=== PATIENT | female | born 1945 | race Caucasian/White ===

== ENCOUNTER 2017-06-03 18:51 | Inpatient (IN) | payer MEDICARE ==
[~2017-06-03] VITALS: Ht 160 cm; Wt 62.8 kg
[2017-06-03 20:07] LABS: RED BLOOD COUNT 3.97 M/UL (4.00-5.10); WHITE BLOOD COUNT 22.4 K/UL (4.5-11.0)
[2017-06-03 20:34] LABS: BUN/CREATININE RATIO 19 (0-10)
[2017-06-04] MEDS ORDERED: SINGULAIR10 MG PO (02:28)
[2017-06-04] MEDS ORDERED: PHENERGAN 12.12.5 M1 PO (02:29)
[2017-06-04] MEDS ORDERED: XANAX0.5 MG PO (02:30)
[2017-06-04] MEDS ORDERED: LASIX20 MG PO (02:30)
[2017-06-04] MEDS ORDERED: ZYRTEC10 MG PO (02:30)
[2017-06-04] MEDS ORDERED: POTASSIUM CHLO10 MEQ PO (02:31)
[2017-06-04] MEDS ORDERED: COREG 12.5MG12.5 MG PO (02:31)
[2017-06-04] MEDS ORDERED: PROZAC20 MG PO (02:32)
[2017-06-04] MEDS ORDERED: ASPIR 8181 MG PO (02:32)
[2017-06-04] MEDS ORDERED: RANEXA500 MG PO (02:32)
[2017-06-04] MEDS ORDERED: BISACODYL5 MG PO (02:33)
[2017-06-04] MEDS ORDERED: AMBIEN5 MG PO (02:34)
[2017-06-04] MEDS ORDERED: PLAVIX75 MG PO (02:34)
[2017-06-04] MEDS ORDERED: LISINOPRIL5 MG PO (02:35)
[2017-06-04] MEDS ORDERED: CRESTOR20 MG PO (02:35)
[2017-06-04] MEDS ORDERED: NORCO 5-325 TA1 EACH PO (02:36)
[2017-06-04] MEDS ORDERED: PROAIR HFA8.5 GM INH (02:37)
[2017-06-04] MEDS ORDERED: BREO ELLIPTA 11 EACH INH (02:38)
[2017-06-04 04:58] LABS: HEMOGLOBIN 11.1 gm/dl (12.3-15.3); RED BLOOD COUNT 3.74 M/UL (4.00-5.10)
[2017-06-04 05:06] LABS: WHITE BLOOD COUNT 13.8 K/UL (4.5-11.0)
[2017-06-05 05:14] LABS: HEMOGLOBIN 11.4 gm/dl (12.3-15.3); RED BLOOD COUNT 3.83 M/UL (4.00-5.10)
[2017-06-05 05:19] LABS: WHITE BLOOD COUNT 19.4 K/UL (4.5-11.0)
[2017-06-05] MEDS ORDERED: MEDROL DOSEPAK 24 MG PO (15:07)
[2017-06-05] MEDS ORDERED: LEVAQUIN500 MG PO (15:08)
[2017-06-05] MEDS ORDERED: MUCINEX600 MG PO (15:10)
[2017-06-05] MEDS ORDERED: IPRAT-ALBUT 0.5-3 ML INH (15:10)
[2017-06-05] MEDS ORDERED: CHANTIX1 EACH PO (15:11)
[2017-06-05] MEDS ORDERED: IMDUR ER TAB 3030 MG PO (15:12)
== END 2017-06-05 16:50 | disposition home or self-care (01) | DRG 190 ==
LOC: ER1 18:51 → ZEROF 23:15 → MED SURG 4 23:15
PROVIDERS: Family Medicine; Physician Assistant Medical; ADMIT Hospitalist
DX: J44.1 Chronic obstructive pulmonary disease with (acute) exacerbation (principal); I50.33 Acute on chronic diastolic (congestive) heart failure; J96.11 Chronic respiratory failure with hypoxia; I11.0 Hypertensive heart disease with heart failure; R59.0 Localized enlarged lymph nodes; I25.118 Atherosclerotic heart disease of native coronary artery with other forms of angina pectoris; M81.0 Age-related osteoporosis without current pathological fracture; F32.9 Major depressive disorder, single episode, unspecified; F41.9 Anxiety disorder, unspecified; R00.2 Palpitations; F17.210 Nicotine dependence, cigarettes, uncomplicated; R91.1 Solitary pulmonary nodule; E78.5 Hyperlipidemia, unspecified; M19.90 Unspecified osteoarthritis, unspecified site; Z95.820 Peripheral vascular angioplasty status with implants and grafts; Z95.1 Presence of aortocoronary bypass graft; Z87.01 Personal history of pneumonia (recurrent); Z79.82 Long term (current) use of aspirin; Z79.01 Long term (current) use of anticoagulants; Z79.899 Other long term (current) drug therapy; Z99.81 Dependence on supplemental oxygen; Z86.79 Personal history of other diseases of the circulatory system; Z95.5 Presence of coronary angioplasty implant and graft; Z79.51 Long term (current) use of inhaled steroids; Z82.49 Family history of ischemic heart disease and other diseases of the circulatory system
CPT/HCPCS: ECHO; 71010; 71260; 80048; 80053; 80061; 82550; 82553; 83036; 83735; 83874; 83880; 84439; 84443; 84481; 84484; 85025; 85027; 93005; 93306; 94640; 94664; C9113; J1642; J1650; J1940; J1956; J2543; J2920; J2930; J3370; J7030; J7050; J7070; Q9962

== ENCOUNTER 2021-11-26 12:55 | Inpatient (IN) | payer MEDICARE ==
[~2021-11-26] VITALS: Ht 157.5 cm; Wt 54.4 kg
[~2021-11-26 12:55] MED LIST: AMBIEN5 MG PO; ASPIR 8181 MG PO; BISACODYL5 MG PO; BREO ELLIPTA 11 EACH INH; CHANTIX1 EACH PO; COREG 12.5MG12.5 MG PO; CRESTOR20 MG PO; IMDUR ER TAB 3030 MG PO; IPRAT-ALBUT 0.5-3 ML INH; LASIX20 MG PO; LEVAQUIN500 MG PO; LISINOPRIL5 MG PO; MEDROL DOSEPAK 24 MG PO; MUCINEX600 MG PO; NORCO 5-325 TA1 EACH PO; PHENERGAN 12.12.5 M1 PO; PLAVIX75 MG PO; POTASSIUM CHLO10 MEQ PO; PROAIR HFA8.5 GM INH; PROZAC20 MG PO; RANEXA500 MG PO; SINGULAIR10 MG PO; XANAX0.5 MG PO; ZYRTEC10 MG PO
[2021-11-26 13:58] LABS: HEMOGLOBIN 11.7 gm/dl (12.3-15.3); RED BLOOD COUNT 3.95 M/UL (4.00-5.10); WHITE BLOOD COUNT 12.4 K/UL (4.5-11.0)
[2021-11-26] MEDS ORDERED: ALPRAZOLAM0.5 MG PO (17:13)
[2021-11-26] MEDS ORDERED: NITROSTAT0.4 MG SL (17:15)
[2021-11-26] MEDS ORDERED: ZOFRAN 4 MG TAB4 MG PO (17:17)
[2021-11-26] MEDS ORDERED: PROAIR HFA8.5 GM INH (17:22)
[2021-11-26] MEDS ORDERED: NORVASC5 MG PO (17:30)
[2021-11-26] MEDS ORDERED: COZAAR50 MG PO (17:30)
[2021-11-27 02:18] LABS: HEMOGLOBIN 10.4 gm/dl (12.3-15.3); WHITE BLOOD COUNT 9.3 K/UL (4.5-11.0)
[2021-11-27 02:29] LABS: RED BLOOD COUNT 3.37 M/UL (4.00-5.10)
--- NOTE | 2021-11-27 03:07 | NUR ---
PATIENT CALLED OUT APPROX 193 FOR HELP. STATED THAT HER "DAUGHTER WAS STUCK IN THE BATHROOM". WHEN I WENT IN THE BATHROOM DOOR WAS CLOSED AND THE PATIENTS DAUGHTER STTATED "HELP ME GET OUT, THE DOORKNOB CAME OFF IN MY HAND". I OPEND THE BATHROOM DOOR TO FIND THE PATIENTS DFAUGHTER HOLDING THE INSIDE BATHROOM DOOR KNOB IN HER HAND. IT HAD COMPLETELY CAME OFF THE DOOR. WC PLACED A MAINTANCECE ORDER FOR REPAIR, THE DOOR KNOB IS NOW IN THE UNIT MANAGERS MAILBOX IN A BAG .
[2021-11-28 02:52] LABS: HEMOGLOBIN 10.7 gm/dl (12.3-15.3); RED BLOOD COUNT 3.5 M/UL (4.00-5.10)
[2021-11-29 03:16] LABS: HEMOGLOBIN 9.8 gm/dl (12.3-15.3); RED BLOOD COUNT 3.26 M/UL (4.00-5.10); WHITE BLOOD COUNT 7.5 K/UL (4.5-11.0)
[2021-11-30] MEDS ORDERED: IPRAT-ALBUT 0.5-3 ML NEB (17:13)
[2021-11-30] MEDS ORDERED: OMNICEF 300 MG300 MG PO (17:13)
--- NOTE | 2021-11-30 18:14 | NUR ---
REPORT CALLED TO [facility]
== END 2021-11-30 18:08 | disposition home health service (06) | DRG 291 ==
LOC: ER1 12:55 → M/S 16:41 → CDU 16:41 → M/S 18:13
PROVIDERS: Family Medicine; Internal Medicine; Internal Medicine Cardiovascular Disease; ADMIT Internal Medicine
PROC: B24BZZZ Ultrasonography of Heart with Aorta (ICD-10-PCS; principal; 2021-11-27)
PROC: 3E03329 Introduction of Other Anti-infective into Peripheral Vein, Percutaneous Approach (ICD-10-PCS; 2021-11-30)
DX: I13.0 Hypertensive heart and chronic kidney disease with heart failure and stage 1 through stage 4 chronic kidney disease, or unspecified chronic kidney disease (principal); J96.21 Acute and chronic respiratory failure with hypoxia; I50.33 Acute on chronic diastolic (congestive) heart failure; G93.41 Metabolic encephalopathy; J18.9 Pneumonia, unspecified organism; N17.9 Acute kidney failure, unspecified; N18.30 Chronic kidney disease, stage 3 unspecified; E78.5 Hyperlipidemia, unspecified; Z20.822 Contact with and (suspected) exposure to COVID-19; J44.9 Chronic obstructive pulmonary disease, unspecified; H91.90 Unspecified hearing loss, unspecified ear; F41.9 Anxiety disorder, unspecified; F17.210 Nicotine dependence, cigarettes, uncomplicated; R27.0 Ataxia, unspecified; I27.20 Pulmonary hypertension, unspecified; I25.10 Atherosclerotic heart disease of native coronary artery without angina pectoris; I65.29 Occlusion and stenosis of unspecified carotid artery; D64.9 Anemia, unspecified; Z79.899 Other long term (current) drug therapy; Z95.5 Presence of coronary angioplasty implant and graft; Z79.82 Long term (current) use of aspirin; Z99.81 Dependence on supplemental oxygen; Z91.81 History of falling; Z71.6 Tobacco abuse counseling
CPT/HCPCS: ECHO; 36415; 36600; 70450; 70551; 71045; 80048; 80053; 81001; 82550; 82553; 82803; 82962; 83605; 83735; 83880; 84100; 84439; 84443; 84484; 85025; 85027; 85652; 86140; 87040; 87086; 93005; 93306; 94640; 94664; 94760; 96372; 96374; 96376; 97161; 97166; 97530; 97535; 99285; G0378; J0692; J1650; J1940; U0002